=== PATIENT | female | born 1960 | race Two or more races ===

== ENCOUNTER → 2016-09-13 | Outpatient (CLI) | payer OTHER ==
--- NOTE | ~2016-09-13 | CR218 ---
[facility] A Service of [facility] RADIOLOGY TEXT RESULTS PATIENT: CELIA CLAIRE LOCATION: [facility] : 58 UNIT #: [id number] AGE: [address]: RAQUEL NICHOLS MD SEX: F ORDER DR: [id number] [facility] [address] [place], [place] [address] [id number] O MR#: [id number] Acc #: [id number] NAME: CELIA CLAIRE : 1960 SEX: F STUDY DATE/TIME: 09/13/2016 9:58 UNIT: [facility] ROOM: STUDY DESCRIPTION: CR Sacroiliac Joint <3 Views Attending Physician: Raquel Nichols M.D. Referring Physician: Raquel Nichols M.D. Ordering Physician: Physician Non-Staff Primary Care Physician: Serge Spencer M.D. MEDICAL IMAGING REPORT This report is preliminary unless electronic signature is present EXAM Sacroiliac joint INDICATIONS Low back pain. Rheumatoid arthritis. FINDINGS 3 views of the sacrum and sacroiliac joints were obtained and compared to lumbar spine dated 04/25/2016. The sacroiliac joints are within normal limits. There is no significant erosion. Sacral arcuate lines are normal. IMPRESSION Negative radiographs of the sacroiliac joints. Dictated by... Melchor Mora M.D. THIS IS AN ELECTRONICALLY VERIFIED REPORT Melchor Mora M.D. at 09/14/2016 12:13 PM JUAQUIN/geremias TD: 09/14/2016 08:57 JOB #: [id number] MEDICAL IMAGING REPORT COPY
== END | disposition home or self-care (01) ==
LOC: CRAD 09:28
DX: M06.09 Rheumatoid arthritis without rheumatoid factor, multiple sites (principal); M54.5 Low back pain
CPT/HCPCS: 72200